=== PATIENT | male | born 1960 | race Caucasian/White ===

== ENCOUNTER 2016-07-16 17:30 | Emergency (ER) | payer OTHER ==
[~2016-07-16] VITALS: Ht 188 cm; Wt 111.5 kg
[2016-07-16 21:01] VITALS: BP 156/100
== END 2016-07-16 21:03 | disposition home or self-care (01) ==
LOC: ED 20:45
DX: M25.511 Pain in right shoulder (principal); R20.9 Unspecified disturbances of skin sensation
CPT/HCPCS: 99284

== ENCOUNTER → 2016-08-04 | Outpatient (CLI) | payer OTHER ==
[~2016-08-04] MED LIST: INTE0.3K3 SQ
== END | disposition home or self-care (01) ==
LOC: RAD 16:30
PROVIDERS: ATTEND Specialist
DX: G35 Multiple sclerosis (principal)
CPT/HCPCS: 72141